=== PATIENT | female | born 1965 | race Caucasian/White ===

== ENCOUNTER → 2022-09-29 | Outpatient (CLI) | payer OTHER, SELFPAY ==
--- NOTE | 2022-09-29 10:28 | MRI_ITS ---
STUDY: MRI BRAIN WITH AND WITHOUT CONTRAST REASON FOR EXAM: Female, 57 years old patient with worsening right-sided headaches. TECHNIQUE: Standardized multiplanar fat and water weighted pulse sequences were obtained. 15 ml of IV Clariscan was administered for the contrast portion of the examination. COMPARISON: None. FINDINGS: Normal size of the ventricles and extra-axial spaces for the patient''s age. There is a small focus of abnormal T2 hyperintensity within the right frontal lobe within the subcortical white matter measuring approximately 5.5 mm in greatest dimension. White matter otherwise has a normal appearance. There is no evidence for recent intracranial ischemia or other cause of cytotoxic edema on diffusion weighted imaging (DWI). Normal T2* images of the brain without demonstrated susceptibility artifact. There is no demonstrated hemosiderin stain. Normal bilateral basal ganglia. Normal thalami. There is no extra-axial fluid accumulation. Normal flow voids within the major intracranial circulation suggesting patency by spin echo criteria. Normal venous enhancement. There is no enhancing intra-axial or extra-axial abnormality. Normal sella turcica, pituitary gland, infundibular stalk, optic chiasm and hypothalamus. Normal tectal plate and pineal gland. Normal midbrain, jacqueline and medulla. Normal cerebellum. Normal basal cisterns. There is left-sided mastoid effusion. Normal bilateral internal auditory canals. No demonstrated orbital abnormality, within the constraints of a routine brain study. Normal visualized paranasal sinuses. Normal calvarium and skull base. Normal visualized soft tissue structures. Normal visualized upper cervical spine. MRI/Brain W/WO Contrast IMPRESSION: 1. Small focus of abnormal right frontal lobe white matter signal. This is of uncertain clinical significance. This can be associated with migraine headaches. 2. No MR evidence for mass or acute infarct. Electronically Signed: Jessica Gaspar MD at 7:24 EDT ,
== END | disposition home or self-care (01) ==
PROVIDERS: Referring Provider Family Medicine; Visit Provider Family Medicine
DX: G44.89 Other headache syndrome (principal)
CPT/HCPCS: 70553; A9575